=== PATIENT | female | born 1990 | race Caucasian/White ===

== ENCOUNTER 2018-12-06 11:17 | Emergency (ER) | payer OTHER ==
[2018-12-06 11:22] VITALS: RESP 16; TEMP 98.7
[2018-12-06 12:45] VITALS: BP 118/79; PULSE 66
--- NOTE | 2018-12-06 12:56 | ED ---
General Adult HPI - General Chief complaint: Nausea/Vomiting/Diarrhea Stated complaint: Diarrhea Time Seen by Provider: 12/06/18 11:45 Source: patient, RN notes reviewed Mode of arrival: ambulatory Limitations: no limitations - History of Present Illness Initial comments: Patient's 28-year-old female presented to the emergency room today with a chief complaint of diarrhea that started this morning. She states she woke up approximately 3 AM had an episode of diarrhea. States is very loose. No sign of blood at that time. States that she woke up approximate hour later to have another bowel movement. States she passed some gas and noticed that there was some mucus-like red tinged in the toilet. She states when she wiped it was on the toilet paper as well. The patient states that she's been afraid to have bowel movement since. Patient states it was a small amount of blood that she saw. Never had blood in the stool in the past. She does admit that she's had problems with her stomach. She states she does get cramping in the abdomen quite often and has episodes of diarrhea. States she has seen the family doctor. She states she currently does not have family physician. Has not been to GI for this in the past. Admits that she has cramping in the abdomen that comes and goes. States currently comfortable at this time. She denies any other complaints or symptoms. Patient denies any recent fever, chills, shortness of breath, chest pain, back pain, nausea or vomiting, numbness or tingling, dysuria or hematuria,headaches or visual changes, or any other complaints. - Related Data Home Medications Medication Instructions Recorded Confirmed Multivitamin,Therapeutic [Thera] 1 tab PO DAILY 12/06/18 12/06/18 Previous Rx's Medication Instructions Recorded Dicyclomine [Bentyl] 20 mg PO QID #20 tablet 12/06/18 Allergies Allergy/AdvReac Type Severity Reaction Status Date / Time nickel [Nickel] AdvReac Rash/Hives Verified 12/06/18 12:19 Review of Systems ROS Statement: Those systems with pertinent positive or pertinent negative responses have been documented in the HPI. ROS Other: All systems not noted in ROS Statement are negative. Past Medical History Past Medical History: No Reported History Additional Past Medical History / Comment(s): History of Any Multi-Drug Resistant Organisms: None Reported Past Surgical History: No Surgical Hx Reported Additional Past Surgical History / Comment(s): no family hx of untoward anesthesia effects with surgery Past Psychological History: No Psychological Hx Reported Smoking Status: Former smoker Past Alcohol Use History: None Reported Past Drug Use History: None Reported General Exam - General Exam Comments Initial Comments: General: The patient is awake and alert, in no distress, and does not appear acutely ill. Neck: The neck is supple, there is no tenderness or JVD. Cardiovascular: There is a regular rate and rhythm. No murmur, rub or gallop is appreciated. Respiratory: Lungs are clear to auscultation, respirations are non-labored, breath sounds are equal. No wheezes, stridor, rales, or rhonchi. Gastrointestinal: Abdomen soft nontender. No rebound, guarding or CVA tenderness. Musculoskeletal: Normal ROM, no tenderness. Strength 5/5. Sensation intact. Pulses equal bilaterally 2+. Neurological: A&O x 3. CN II-XII intact, There are no obvious motor or sensory deficits. Coordination appears grossly intact. Speech is normal. Skin: Skin is warm and dry and no rashes or lesions are noted. Psychiatric: Cooperative, appropriate mood & affect, normal judgment. Limitations: no limitations Course Vital Signs 12/06/18 12/06/18 11:18 12:44 Temperature 98.7 F Pulse Rate 78 66 Respiratory 16 16 Rate Blood Pressure 114/69 118/79 O2 Sat by Pulse 98 99 Oximetry Medical Decision Making - Medical Decision Making Options were discussed with the patient here about lab work. Was discussed about a rectal exam. Patient has declined these. She states she does not want to have blood work does not like needles. Does not have a rectal exam. Was discussed about following up with GI for the symptoms. Patient is symptomatic here in emergency room. Advised that she should return to emergency room if symptoms increase or worsen. Patient will be given a prescription for Bentyl for her cramping abdominal pain. Advised to follow-up or return. She states understanding and is in agreement. Disposition Clinical Impression: Abdominal pain Disposition: HOME SELF-CARE Condition: Good Instructions (If sedation given, give patient instructions): Abdominal Pain (ED) Additional Instructions: Please use medication as discussed. Please follow-up with GI/family doctor in the next 2 days of symptoms have not improved. Please return to emergency room if the symptoms increase or worsen or for any other concerns. Prescriptions: Dicyclomine [Bentyl] 20 mg PO QID #20 tablet Is patient prescribed a controlled substance at d/c from ED?: No Referrals: None,Stated [Primary Care Provider] - 1-2 days Toyin Land MD [STAFF PHYSICIAN] - 1-2 days Time of Disposition: 12:56
== END 2018-12-06 13:20 | disposition home or self-care (01) ==
LOC: EC 11:17
DX: R10.9 Unspecified abdominal pain (principal); R19.7 Diarrhea, unspecified; R11.2 Nausea with vomiting, unspecified; Z87.891 Personal history of nicotine dependence; Z91.048 Other nonmedicinal substance allergy status; Z53.29 Procedure and treatment not carried out because of patient's decision for other reasons
CPT/HCPCS: 99283

== ENCOUNTER 2023-06-23 19:26 | Emergency (ER) | payer OTHER ==
--- NOTE | 2023-06-23 19:52 | ED ---
Extremity Problem HPI - General Chief complaint: Extremity Problem,Nontraumatic Stated complaint: left leg pain/tingly Time Seen by Provider: 06/23/23 19:48 Source: patient, RN notes reviewed Mode of arrival: ambulatory Limitations: no limitations - History of Present Illness Initial comments: This is a 33 year old female who presents to the emergency department for left leg pain. Symptoms started over a month ago. This is behind the left knee and on the outside of the foot. Various movements and trying to bend down makes this worse. Denies any known injuries, but states that she was using a kickboard with her daughter at the [facility] before this occurred and wonders if she may have damaged something by kicking too hard. States that she just wants to make sure that it is safe her for to walk around on her leg. MD Complaint: extremity pain - Related Data Home Medications Medication Instructions Recorded Confirmed Multivitamin,Therapeutic [Thera] 1 tab PO DAILY 12/06/18 12/06/18 Previous Rx's Medication Instructions Recorded Dicyclomine [Bentyl] 20 mg PO QID #20 tablet 12/06/18 methocarbamoL [Robaxin] 1,500 mg PO TID PRN #30 tab 06/23/23 predniSONE 50 mg PO DAILY 5 Days #5 tab 06/23/23 Allergies Allergy/AdvReac Type Severity Reaction Status Date / Time nickel [Nickel] AdvReac Rash/Hives Verified 06/23/23 19:49 Review of Systems ROS Statement: Those systems with pertinent positive or pertinent negative responses have been documented in the HPI. ROS Other: All systems not noted in ROS Statement are negative. Past Medical History Past Medical History: No Reported History Additional Past Medical History / Comment(s): History of Any Multi-Drug Resistant Organisms: None Reported Past Surgical History: No Surgical Hx Reported Additional Past Surgical History / Comment(s): no family hx of untoward anesthesia effects with surgery Past Psychological History: No Psychological Hx Reported Past Alcohol Use History: None Reported Past Drug Use History: None Reported General Exam - General Exam Comments Initial Comments: Visual Physical Exam Vital signs reviewed General: Well-appearing, nontoxic, no acute distress. Head: Normocephalic, atraumatic Eyes: PERRLA, EOMI ENT: Airway patent Chest: Nonlabored breathing Skin: No visual rash, normal skin tone Neuro: Alert and oriented 3 Musculoskeletal: No gross abnormalities I performed the QuickNote portion of this chart. Signed Sultana Schreiber PA-C. Limitations: no limitations General appearance: alert, in no apparent distress Head exam: Present: atraumatic, normocephalic, normal inspection Respiratory exam: Present: normal lung sounds bilaterally. Absent: respiratory distress, wheezes, rales, rhonchi, stridor Cardiovascular Exam: Present: regular rate, normal rhythm, normal heart sounds. Absent: systolic murmur, diastolic murmur, rubs, gallop, clicks Extremities exam: Present: other (Tenderness to palpation over the posterior aspect of the left thigh and on the lateral aspect of the left knee and tib-fib. 2+ DP and PT pulses. Capillary refill less than 1 second.) Neurological exam: Present: alert, oriented X3, CN II-XII intact Psychiatric exam: Present: normal affect, normal mood Skin exam: Present: warm, dry, intact, normal color. Absent: rash Course Vital Signs 06/23/23 06/23/23 19:50 22:29 Temperature 98 F 98.3 F Pulse Rate 81 71 Respiratory 18 18 Rate Blood Pressure 114/72 107/58 O2 Sat by Pulse 98 99 Oximetry Medical Decision Making - Medical Decision Making This is a 33-year-old female who presents to the emergency department for left leg pain. Was pt. sent in by a medical professional or institution? @ -No Did you speak to anyone other than the patient for history? @ -No Did you review nursing and triage notes? @ -Yes, and I agree, it is accurate with regards to the patient's symptoms. Were old charts reviewed? @ -No Differential Diagnosis? @ -Differential Leg Pain: Leg fracture, leg sprain, DVT, PVD, arterial insufficiency, iliac artery aneurysm, cellulitis, compartment syndrome, tendinopathy, nerve entrapment, piriformis syndrome, osteoarthritis, rhabdomyolysis, myositis, cramping from an electrolyte imbalance, this is not meant to be an all inclusive list. EKG interpreted by me (3pts min.)? @ -Not obtained X-rays interpreted by me (1pt min.)? @ -X-ray of the left femur, left tib-fib, and left foot obtained. My interpretation identifies no acute fractures. CT interpreted by me (1pt min.)? @ -Not obtained U/S interpreted by me (1pt. min.)? @ -Not obtained What testing was considered but not performed? (CT, X-rays, U/S, labs)? Why? @ -None What meds were considered but not given? Why? @ -None Did you discuss the management of the patient with other professionals? @ -No Did you reconcile home meds? @ -No Was smoking cessation discussed for >3mins.? @ -No Was critical care preformed (if so, how long)? @ -No Were there social determinants of health that impacted care today? How? (Homelessness, low income, unemployed, alcoholism, drug addiction, transportation, low edu. Level, literacy, decrease access to med. care, senior care, rehab)? @ -No Was there de-escalation of care discussed even if they declined? (Discuss DNR or withdrawal of care, Hospice)? @ -No What co-morbidities impacted this encounter? (DM, HTN, Smoking, COPD, CAD, Cancer, CVA, Hep., AIDS, mental health diagnosis, sleep apnea, morbid obesity)? @ -None Was patient admitted / discharged? @ -Discharged. X-ray of the left femur, tib-fib, and foot obtained revealing no acute process. Based on the description of her symptoms, and physical examination, this appears to follow a nerve distribution and may be related to a lumbar radiculopathy. There were no overlying deformities, swelling, or areas of erythema to suggest an infectious or vascular process. She was given a prescription for a 5 day course of prednisone and Robaxin with dosing instructions reviewed. Advised that the Robaxin is sedating and she should avoid driving or operating machinery when taking this. Otherwise advised follow-up with her primary care provider. Undiagnosed new problem with uncertain prognosis? @ -None Drug Therapy requiring intensive monitoring for toxicity (Heparin, Nitro, Insulin, Cardizem)? @ -None Were any procedures done? @ -None Diagnosis/symptom? @ -Left lumbar radiculopathy Acute, or Chronic, or Acute on Chronic? @ -Acute Uncomplicated (without systemic symptoms) or Complicated (systemic symptoms)? @ -Uncomplicated Side effects of treatment? @ -None Exacerbation, Progression, or Severe Exacerbation] @ -Not applicable Poses a threat to life or bodily function? @ -No Return precautions reviewed in depth, the patient is instructed to return to the emergency department with any new, worsening, or concerning symptoms. Patient verbalized understanding. This case was discussed in detail with the attending ED physician, Dr. Maldonado. Presentation, findings, and treatment plan discussed in detail as well. - Radiology Data Radiology results: report reviewed, image reviewed Disposition Clinical Impression: Neuropathy of left lower extremity Disposition: HOME SELF-CARE Instructions (If sedation given, give patient instructions): Sciatica (ED), Lumbar Radiculopathy (ED) Additional Instructions: Return to the emergency department with any new, worsening, or concerning symptoms. Take the prednisone daily for 5 days. You can take the muscle relaxant as 1-2 tablets 3-4 times daily. Be aware that this may make you drowsy and you should avoid driving or operating machinery when taking it. Contact orthopedics as listed below for follow-up and reevaluation of ongoing symptoms. Prescriptions: predniSONE 50 mg PO DAILY 5 Days #5 tab methocarbamoL [Robaxin] 1,500 mg PO TID PRN #30 tab PRN Reason: Pain Is patient prescribed a controlled substance at d/c from ED?: No Referrals: None,Stated [Primary Care Provider] - 1-2 days
[2023-06-23 19:56] VITALS: RESP 18
--- NOTE | 2023-06-23 20:50 | XR ---
EXAMINATION TYPE: XR tibia fibula LT DATE OF EXAM: 06/23/2023 8:44 PM INDICATION: Patient age:Female; 33 years old; Reason for study: Pain; [facility]. COMPARISON: None TECHNIQUE: The left tibia/fibula was examined in AP and lateral projections. FINDINGS: No evidence of any acute osseous pathology, joint dislocation, or soft tissue swelling is n oted. IMPRESSION: No evidence of acute fracture.
--- NOTE | 2023-06-23 20:50 | XR ---
EXAMINATION TYPE: XR foot complete LT DATE OF EXAM: 06/23/2023 8:44 PM INDICATION: Patient age:Female; 33 years old; Reason for study: Pain; [facility]. COMPARISON: None TECHNIQUE: The left foot was examined in the AP, oblique, and lateral projections. FINDINGS: No evidence of any acute osseous pathology. No evidence of soft tissue swelling. Joints are preserve d. No radiopaque foreign body. IMPRESSION: No evidence of acute fracture.
--- NOTE | 2023-06-23 20:51 | XR ---
EXAMINATION TYPE: XR femur LT DATE OF EXAM: 06/23/2023 8:44 PM INDICATION: Patient age:Female; 33 years old; Reason for study: Pain; COMPARISON: None TECHNIQUE: The left femur was examined in AP and lateral projections. FINDINGS: No evidence of acute osseous pathology, joint dislocation, or soft tissue swelling . IUD i s demonstrated within the pelvis. IMPRESSION: No acute osseous pathology.
[2023-06-23] MEDS ORDERED: KETOROLAC 15 MG/ML 1 ML VIAL IM STA (21:51)
[2023-06-23] MEDS ORDERED: DEXAMETHASONE SOD PHOSPHATE 10 MG/ML 1 ML VIAL IM STA (21:51)
[2023-06-23] MEDS ORDERED: ACET/COD 300 MG/30 MG STARTER PACK 6 TAB BTL PO STA (21:56)
[2023-06-23 22:40] VITALS: BP 107/58; PULSE 71; TEMP 98.3
== END 2023-06-23 22:40 | disposition home or self-care (01) ==
LOC: EC 19:26
DX: G57.92 Unspecified mononeuropathy of left lower limb (principal); Z88.8 Allergy status to other drugs, medicaments and biological substances
CPT/HCPCS: 73552; 73590; 73630; 99283; 96372 ×2; J1100; J1885